=== PATIENT | male | born 1995 | race Two or more races ===

== ENCOUNTER 2024-01-05 17:17 | Emergency (ER) | payer SELFPAY ==
[~2024-01-05] VITALS: Ht 180.3 cm; Wt 86.8 kg
[~2024-01-05 17:17] MED LIST: NOCURR
[2024-01-05 18:21] LABS: BASOPHILS % (AUTO) 0.3 % (0.0-2.0); EOSINOPHILS % (AUTO) 0.1 % (1.0-6.0); HEMATOCRIT 41.5 % (41-53); HEMOGLOBIN 14.7 g/dL (13.5-17.5); LYMPHOCYTES # (AUTO) 1.7 K/uL (1.0-4.8); LYMPHOCYTES % (AUTO) 18.5 % (22.0-44.0); MEAN CORPUSCULAR HEMOGLOBIN 32.3 pg (26.0-34.0); MEAN CORPUSCULAR HGB CONC 35.3 G/dL (31.0-37.0); MEAN CORPUSCULAR VOLUME 91 fL (80-100); MONOCYTES # (AUTO) 0.9 K/uL (0.1-1.0); MONOCYTES % (AUTO) 9.6 % (2.0-9.0); NEUTROPHILS # (AUTO) 6.7 K/uL (1.8-7.7); NEUTROPHILS % (AUTO) 71.5 % (40.0-70.0); PLATELET COUNT (AUTO) 276 K/uL (150-450); RED BLOOD CELL COUNT(AUTO) 4.54 MIL/uL (4.50-5.90); RED CELL DISTRIBUTION WIDTH 13.2 % (11.5-14.5); WHITE BLOOD COUNT (AUTO) 9.3 K/uL (4.5-11.0)
[2024-01-05] MEDS: FAMOTIDINE 20 MG/2 ML VIAL IVP ONE (18:46)
[2024-01-05] MEDS: MAG HYDROX/ALUMINUM HYD/SIMETH 30 ML SUSPENSION UDCUP PO ONE (18:46)
[2024-01-05] MEDS: SODIUM CHLORIDE 0.9% 1,000 ML IV ONE (18:46)
[2024-01-05] MEDS: ONDANSETRON HCL 4 MG/2 ML VIAL IVP ONE (18:46)
[2024-01-05 18:51] LABS: ALANINE AMINOTRANSFERASE 21 U/L (12-78); ALBUMIN 4.3 g/dL (3.4-5.0); ALKALINE PHOSPHATASE 78 U/L (46-116); CHLORIDE 103 mmol/L (98-107); POTASSIUM 3.7 mmol/L (3.5-5.1); SODIUM SERUM 143 mmol/L (136-145); UREA NITROGEN, BLOOD 10 mg/dL (7-18)
[2024-01-05 19:05] LABS: ANION GAP 12 mmol/L (8-16); ASPARTATE AMINOTRANSFERASE 15 U/L (15-37); BILIRUBIN,TOTAL 0.4 mg/dL (0.1-1.0); CALCIUM, TOTAL 8.6 mg/dL (8.8-10.5); CARBON DIOXIDE 28 mmol/L (22-29); CREATININE 1.01 mg/dL (0.60-1.30); GLOMERULAR FILTR. RATE CALC > 60 mL/min (>60); GLUCOSE,RANDOM 123 mg/dL (70-110); LIPASE 62 U/L (16-77); TOTAL PROTEIN, SERUM 7.7 g/dL (6.4-8.2)
[2024-01-05 19:59] LABS: APPEARANCE,URINE CLEAR (CLEAR); BILIRUBIN,URINE NEGATIVE (NEGATIVE); COLOR,URINE YELLOW (YELLOW); GLUCOSE, URINE (UA) TRACE mg/dL (NEGATIVE); KETONES,URINE TRACE mg/dL (NEGATIVE); LEUKOCYTE ESTERASE ,URINE NEGATIVE (NEGATIVE); NITRATE,URINE NEGATIVE (NEGATIVE); OCCULT BLOOD,URINE NEGATIVE (NEGATIVE); PROTEIN,URINE 30-70 mg/dL (NEGATIVE); SPECIFIC GRAVITIY, URINE 1.041 (1.003-1.030)
[2024-01-05] MEDS ORDERED: IOHEXOL 350 MG/ML 100 ML VIAL ONE (20:04)
[2024-01-05] MEDS ORDERED: SODIUM CHLORIDE 0.9% 100 ML ONE (20:04)
[2024-01-05 21:00] VITALS: BP 129/68; PULSE 71; RESP 18; TEMP 98.3
== END 2024-01-05 21:00 | disposition home or self-care (01) ==
LOC: EMS 17:23
DX: R10.12 Left upper quadrant pain (principal); R11.2 Nausea with vomiting, unspecified; I10 Essential (primary) hypertension; F12.90 Cannabis use, unspecified, uncomplicated; Z90.49 Acquired absence of other specified parts of digestive tract
CPT/HCPCS: 99285; 74177; 96374; 96361; 80053; 81003; 83690; 85025; 36415; J3490; J2405; Q9967; J7030; J7050